=== PATIENT | female | born 1955 | race Caucasian/White ===

== ENCOUNTER → 2017-04-28 | Outpatient (CLI) | payer OTHER | END | disposition home or self-care (01) | LOC: MAMMO 09:31 | PROVIDERS: ATTEND Nurse Practitioner Family | DX: Z12.31 Encounter for screening mammogram for malignant neoplasm of breast (principal) | CPT/HCPCS: 77063; G0202 ==

== ENCOUNTER → 2018-05-09 | Outpatient (CLI) | payer OTHER ==
--- NOTE | 2018-05-10 21:28 | MAM ---
EXAM DESCRIPTION: 3D Screening BILATERAL : Digital Mammography. CLINICAL HISTORY: 62 years Female SCREEN . No complaints. No personal or family history of breast cancer. Childbirth. Postmenopausal 20 years. Currently on HRT.. Lifetime risk of developing breast cancer (Tyrer-Cuzick model)(%): 5. COMPARISON: Bilateral screening digital breast tomosynthesis 04/28/2017. TECHNIQUE: Bilateral CC and MLO projection full-field images, digital tomosynthesis mammographic technique. Bilateral digital 2-D full-field MLO images. CAD not available for tomosynthesis or 2-D images. FINDINGS: The breast parenchymal density pattern is: Heterogeneously dense breast tissue, which may obscure small masses. . Bilateral axillary lymph nodes. Bilateral solitary microcalcifications. No new focal, stellate mass or density, focal asymmetry , and no suspicious microcalcifications bilaterally. Stable mammograms compared to prior study. IMPRESSION: Benign exam. BIRAD CATEGORY: 2 BENIGN FINDINGS. RECOMMENDATIONS: FOLLOW UP: Routine digital bilateral mammographic screening, one year interval from April 2018. Written communication explaining the IMPRESSION and follow-up, will be mailed to the patient and referring health care provider. According to the [employer], yearly mammograms are recommended starting at age 40 and continuing as long as a woman is in good health. Any breast change noted on a breast self-exam should be reported promptly to the patient's healthcare provider. Breast MRI is recommended for women with an approximately 20-25% or greater lifetime risk of breast cancer, including women with a strong family history of breast or ovarian cancer and women who have been treated for Hodgkin's disease. A negative mammographic report should not delay tissue diagnosis in patients with significant clinical history or physical findings. Extremely dense breast tissue limits the sensitivity of digital mammography. Electronically signed by: Jose Harris MD 05/10/2018 9:27 PM [facility]
== END ==
LOC: MAMMO 14:30
PROVIDERS: ATTEND Nurse Practitioner Family
DX: Z12.31 Encounter for screening mammogram for malignant neoplasm of breast (principal)

== ENCOUNTER 2018-10-31 10:40 | Emergency (ER) | payer OTHER ==
[2018-10-31 10:48] VITALS: TEMP 98.4
[2018-10-31] MEDS: ASPIRIN TABLET 325 MG TAB PO ONE (11:09)
[2018-10-31] MEDS: NITROGLYCERIN 0.4 MG 25 EA TAB SL ONE (11:17)
--- NOTE | 2018-10-31 11:22 | RAD ---
EXAM DESCRIPTION: Chest,1 View CLINICAL HISTORY: 63 years Female, chest pain COMPARISON: None. TECHNIQUE: AP portable chest. FINDINGS: Single view of the chest demonstrates a left lung clear. There are coarse increased markings in the medial right lung base consistent with atelectasis or possibly bronchopneumonia. No significant pleural effusion is seen. Heart size is normal with mildly tortuous aortic arch. IMPRESSION: Increased markings and hazy density medial right lung base, suspicious for bronchopneumonia or atelectasis. Electronically signed by: Shola Wynn MD 10/31/2018 11:20 AM CDT
--- NOTE | 2018-10-31 11:26 | ED.PDOC ---
History of Present Illness - General Chief Complaint: Chest Pain/KS Stated Complaint: chest pain, dizziness, nausea Time Seen by Provider: 10/31/18 10:50 Source: patient Exam Limitations: no limitations - History of Present Illness Initial Comments: Patricia Ferris 63 y/o female came to ER with chest heaviness, arms got numb ,felt dizzy,that he needs to lean on the wall after pushing cart with airplane parts which lasted for about 10 mintues on arrival at ER she was asymptomatic.Had same chest heaviness last which also went away.And mentioned that it had been going on for the last one month 1-2x a day but was mild no medical attention made thinking it will gonna get better.Has history of HTN,smokes 1ppd x 40 years. Timing/Duration: 1-3 hours Severity: moderate Location: central Activities at Onset: activity Prior Chest Pain/Cardiac Workup: stress test, thallium scan - 2 Improving Factors: rest Worsening Factors: nothing Aspirin Treatment Today: 81 mg x 4 Associated Symptoms: other - see hpi Allergies/Adverse Reactions: Allergies NO KNOWN ALLERGY Allergy (Verified 04/20/16 08:54) Home Medications: Ambulatory Orders ALPRAZolam [Xanax] 0.25 mg PO PRN 04/20/16 Desvenlafaxine Succinate [Pristiq] 100 mg PO DAILY 04/20/16 Simvastatin [Zocor] 20 mg PO BEDTIME 04/20/16 amLODIPine BESYLATE [Norvasc] 10 mg PO DAILY 04/20/16 Cefuroxime Axetil [Ceftin] 500 mg PO Q12H #10 tablet 10/31/18 Nitroglycerin 0.4 mg Tab [Nitrostat] 0.4 mg SL .Q5M PRN #1 bttl 10/31/18 Review of Systems - Review of Systems Constitutional: States: no symptoms reported EENTM: States: no symptoms reported Respiratory: States: no symptoms reported Cardiology: States: see HPI Gastrointestinal/Abdominal: States: no symptoms reported Genitourinary: States: no symptoms reported Musculoskeletal: States: no symptoms reported Skin: States: no symptoms reported Neurological: States: no symptoms reported Endocrine: States: no symptoms reported Hematologic/Lymphatic: States: no symptoms reported All other Systems: Reviewed and Negative, No Change from Baseline Past Medical History (General) - Patient Medical History Hx Congestive Heart Failure: No Hx Diabetes: No Hx MRSA: No Surgical History: cholecystectomy, other - c-spine;hysterectomy - Social History Hx Tobacco Use: Yes Years Tobacco Use: 40 Cigarettes Packs Per Day: 20 Hx Physical Abuse: No Hx Emotional Abuse: No - Activities of Daily Living Patient Lives Alone: No - Female History Patient is a Female of Child Bearing Age (10 -59 yrs old): No Family Medical History - Family History Mother Hx Family Hypertension: Yes - mom Hx Cardiac Disease: Yes - mother Hx Family Diabetes: Yes - mom Physical Exam - Physical Exam General Appearance: Agitated, Comfortable, No apparent distress Eyes, Ears, Nose, Throat Exam: PERRL/EOMI, normal ENT inspection Neck: non-tender, full range of motion, supple, normal inspection Respiratory: chest non-tender, lungs clear, normal breath sounds Cardiovascular/Chest: normal peripheral pulses, regular rate, rhythm, no gallop, no murmur Peripheral Pulses: radial,right: 2+, radial,left: 2+ Gastrointestinal/Abdominal: normal bowel sounds, non tender, soft, no organomegaly Extremity: non-tender, no pedal edema, no calf tenderness Neurologic: alert, oriented x 3 Skin Exam: normal color, warm/dry Lymphatic: no adenopathy Progress - Progress Progress: 10/31/18 11:30 Vital Signs - 24 hr 10/31/18 10/31/18 10/31/18 10:44 10:54 11:19 Temperature 98.4 F Pulse Rate [ 16 L 65 66 left brachial] Respiratory 22 17 16 Rate Blood Pressure 164/105 151/86 147/84 [left brachial] O2 Sat by Pulse 96 98 98 Oximetry - Results/Orders Results/Orders: 10/31/18 10:51 IV Care:Saline Lock per Protoc QSHIFT 10/31/18 11:00 EKG STAT 10/31/18 11:03 Urine Culture Stat 10/31/18 12:30 Be Our Guest Tray (BOG) ONCE 10/31/18 13:45 EKG STAT 10/31/18 14:14 Urine Culture Urgent 10/31/18 14:33 cefTRIAXone SODIUM [Rocephin] 1 gm Sodium Chl 0.9% 50Ml Min-Bag+ [NS 50ml MINI-BAG+] 50 ml IVPB ONCE Laboratory Results - last 24 hr 10/31/18 10/31/18 10/31/18 10:41 10:41 11:03 WBC 9.5 RBC 4.72 Hgb 14.9 Hct 43.8 MCV 92.7 MCH 31.4 H MCHC 33.9 RDW 13.0 Plt Count 271 MPV 8.1 Absolute Neuts (auto) 5.60 Absolute Lymphs (auto) 2.90 Absolute Monos (auto) 0.70 Absolute Eos (auto) 0.20 Absolute Basos (auto) 0.10 Neutrophils % 59.1 Lymphocytes % 30.4 Monocytes % 7.3 Eosinophils % 2.2 Basophils % 1.0 PT 9.4 INR 0.94 PTT (SP) 26.6 Sodium 137 Potassium 3.8 Chloride 104 Carbon Dioxide 25 Anion Gap 11.8 L BUN 11 Creatinine 0.59 L BUN/Creatinine Ratio 18.6 Random Glucose 90 Serum Osmolality 272.7 L Calcium 9.4 Magnesium 2.1 Total Bilirubin 0.6 Direct Bilirubin < 0.1 Indirect Bilirubin 0.5 AST 22 ALT 23 Alkaline Phosphatase 62 Creatine Kinase 69 CK-MB (CK-2) 2.3 CK-MB (CK-2) % 3.33 Troponin I < 0.02 Serum Total Protein 8.0 Albumin 4.3 Urine Color Yellow Urine Appearance Cloudy Urine pH 5.5 Ur Specific [place] 1.015 Urine Protein Negative Urine Glucose (UA) Negative Urine Ketones Negative Urine Blood Moderate H Urine Nitrite Positive H Urine Bilirubin Negative Urine Urobilinogen 0.2 Ur Leukocyte Esterase Negative Urine RBC 1-3 Urine WBC 3-5 H Ur Epithelial Cells 1-3 Urine Bacteria 3+ H 10/31/18 13:50 WBC RBC Hgb Hct MCV MCH MCHC RDW Plt Count MPV Absolute Neuts (auto) Absolute Lymphs (auto) Absolute Monos (auto) Absolute Eos (auto) Absolute Basos (auto) Neutrophils % Lymphocytes % Monocytes % Eosinophils % Basophils % PT INR PTT (SP) Sodium Potassium Chloride Carbon Dioxide Anion Gap BUN Creatinine BUN/Creatinine Ratio Random Glucose Serum Osmolality Calcium Magnesium Total Bilirubin Direct Bilirubin Indirect Bilirubin AST ALT Alkaline Phosphatase Creatine Kinase CK-MB (CK-2) CK-MB (CK-2) % Troponin I < 0.02 Serum Total Protein Albumin Urine Color Urine Appearance Urine pH Ur Specific [place] Urine Protein Urine Glucose (UA) Urine Ketones Urine Blood Urine Nitrite Urine Bilirubin Urine Urobilinogen Ur Leukocyte Esterase Urine RBC Urine WBC Ur Epithelial Cells Urine Bacteria Discuss all test result with patient no myocardail injury on her EKG and blood test but recommended hospital observation for serial cardiac enzyme but declined .She will call up her primary Md Dr. Sánchez on discharge from ER for follow up.Also told her i will prescribe nitroglycerin and continue taking baby aspirin to come back to ER if symptoms worsens. Also discuss other findings on her urine for uti and CXR-right infiltrates to give antibiotics. - EKG/XRAY/CT EKG: Sinus, no ST T wave changes Comments: hr-64 XRAY: chest - increase lung markings right lung base - Additional EKG/XRAY/Consults EKG #2: Sinus, no ST T wave changes Comments: HR-64 Departure - Departure Clinical Impression: Abnormal chest xray Chest pain Qualifiers: Chest pain type: unspecified Qualified Code(s): R07.9 - Chest pain, unspecified Urinary tract infection Qualifiers: Urinary tract infection type: site unspecified Hematuria presence: with hematuria Qualified Code(s): N39.0 - Urinary tract infection, site not specified; R31.9 - Hematuria, unspecified Time of Disposition: 14:43 Disposition: Discharge to Home or Self Care Condition: Fair Departure Forms: ED Discharge - Pt. Copy, Patient Portal Self Enrollment Instructions: DI for Chest Pain, Urinary Tract Infection, Adult (DC) Referrals: Davide Sánchez MD [Primary Care Provider] - 1-2 Weeks Prescriptions: Cefuroxime Axetil [Ceftin] 500 mg PO Q12H #10 tablet Nitroglycerin 0.4 mg Tab [Nitrostat] 0.4 mg SL .Q5M PRN #1 bttl PRN Reason: Chest Pain Home Medications: Ambulatory Orders ALPRAZolam [Xanax] 0.25 mg PO PRN 04/20/16 Desvenlafaxine Succinate [Pristiq] 100 mg PO DAILY 04/20/16 Simvastatin [Zocor] 20 mg PO BEDTIME 04/20/16 amLODIPine BESYLATE [Norvasc] 10 mg PO DAILY 04/20/16 Cefuroxime Axetil [Ceftin] 500 mg PO Q12H #10 tablet 10/31/18 Nitroglycerin 0.4 mg Tab [Nitrostat] 0.4 mg SL .Q5M PRN #1 bttl 10/31/18 Additional Instructions: RETURN TO ER NEEDED;CALL UP YOU PRIMARY MD TODAY FOR RECHECK AND FOLLOW UP [employer];Continue with Baby Aspirin one daily and all home medications
[2018-10-31] MEDS ORDERED: SODIUM CHL 0.9% 50ML MIN-BAG+ 50 ML IVPB ONE (14:48)
[2018-10-31] MEDS ORDERED: cefTRIAXone SODIUM 1 GM VIAL ONE (14:48)
[2018-10-31] MEDS: cefTRIAXone SODIUM 1 GM in SODIUM CHL 0.9% 50ML MIN-BAG+ 50 ML IVPB ONE (14:52)
[2018-10-31 15:06] VITALS: BP 147/83; O2SAT 95
== END 2018-10-31 15:42 | disposition home or self-care (01) ==
LOC: ER 10:40
DX: R07.9 Chest pain, unspecified (principal); N39.0 Urinary tract infection, site not specified; R31.9 Hematuria, unspecified; R91.8 Other nonspecific abnormal finding of lung field; F17.210 Nicotine dependence, cigarettes, uncomplicated; Z79.899 Other long term (current) drug therapy